=== PATIENT | male | born 1945 | race Caucasian/White ===

== ENCOUNTER 2016-11-09 00:19 | Day surgery (SDC) | payer MEDICARE ==
[2016-11-09] VITALS (12 sets, daily range): BP systolic 130–186; BP diastolic 56–84; PULSE 44; RESP 11–16; O2SAT 96–99
[~2016-11-09] VITALS: Ht 172.7 cm; Wt 101.1 kg
[~2016-11-09 00:19] MED LIST: ALLO300T2 PO; ASPI-973 PO; COLC0.6T52 PO; ETOD400T PO; KEN1O TOP; LOVA40TA PO; OLME1TAB5 PO; PIND5TAB PO
[2016-11-09] MEDS ORDERED: 0.9% Sodium Chloride 1,000 ML IV SCH (06:30)
[2016-11-09 07:25] LABS: BASOPHILS % (AUTO) 0.3 % (0-3); EOSINOPHILS % (AUTO) 5.2 % (0-5); MONOCYTES % (AUTO) 9.1 % (4-12); Mean Corpuscular Hemoglobin 31.9 pg (27.0-35.0); Mean Corpuscular Volume 91.2 fL (81-100); NEUTROPHILS % (AUTO) 58.2 % (40-74); Platelet Count 150 bil/L (150-400)
[2016-11-09] MEDS ORDERED: Heparin 1,000 Units/500 mL NS Premix IV ONE (08:41)
[2016-11-09] MEDS ORDERED: Heparin 10,000 Unit/1,000 mL NS Premix IV ONE (08:41)
[2016-11-09] MEDS ORDERED: 0.9% Sodium Chloride 50 ML ONE (09:46)
[2016-11-09] MEDS ORDERED: fentaNYL-PF 50 mCg/mL 2 mL Inj ONE (09:52)
[2016-11-09] MEDS ORDERED: Heparin 1,000 Unit/mL 10 mL Inj ONE (09:57)
--- NOTE | 2016-11-09 10:02 | NUR ---
Admitted today for an evaluation of his aortic valve. Symptoms of shortness of breath walking up a hill. which resolve after a brief rest, per patient. Treatment for Lower leg edema is managed by support hose and occasional diuretic - patient does not remember the name, and does not take it routinely. NSB today rates in the mid- 40's. Patient is here today with his , "Emy".
[2016-11-09] MEDS ORDERED: Atropine 1 mg/10 mL (Code) Syringe ONE (10:13)
--- NOTE | 2016-11-09 15:00 | NUR ---
Recovery completed for 3 hours post diagnostic heart cath today by Dr Morales. Right puncture site was a manual hold is soft with no hematoma , but patient states it feels like an ache-bruised feeling. Dr Guevara at bedside assessed Right puncture site - found nothing notable - Expressed to the patient to contact his office if the access site pain worsens, or he has more concerns. Patient and given Dr Morales's card with office number, and instructions to call the instructor bridge if further groin management is needed. NSB throught admit and stay in [facility] rates in the 40's. Home care instructions for home care post heart/sedation reviewed with both patient and patient's , "Emy". Plan is to have patient return next week for a possible stent placement - office to contact patient at home with appointment and pre-op instructions.
--- NOTE | 2016-11-10 16:06 | DI95 ---
[address] [address] INTERVENTIONAL CARDIAC CATHETERIZATION PATIENT: CEHYENNE SHARP : 1945 MR#: [id number] ADMIT: 11/09/2016 JOB ID: [id number] DATE: 11/09/2016 PROCEDURE: 1. Selective right and left coronary angiography. 2. Left heart catheterization. 3. Right heart catheterization. INDICATION: Aortic stenosis. Coronary artery disease. PROCEDURAL DETAILS: The reader is referred to the procedure log for complete details. Briefly, it was done via right femoral approach using a 6-Scottish system. A long sheath was placed in the proximal aorta. Left heart catheterization was performed with a 5-Scottish pigtail. The rest was done with a 6-Scottish system. ANGIOGRAPHIC FINDINGS: 1. Mild calcification of the AV groove and the aortic valve as well as the proximal coronary disease noted on fluoroscopy. 2. Left main: No critical stenosis. 3. LAD: In its mid portion just past the first major septal branch has an eccentric 80% lesion. This is followed by tubular stenosis of 40%-50%. Further down the mid LAD has another 50%-60% lesion. The second diagonal which is a small 1 mm vessel has an ostial 60% lesion. The ramus intermedius is a moderate caliber vessel free of any critical disease. 4. Circumflex is nondominant. It does not have any critical stenosis. 5. Right coronary artery is dominant. It is ectatic. Proximally, it has a 30% lesion accentuated by ectasia. This appears to be worse than it might actually be. In its mid portion, there appears to be another lesion ranging anywhere from 40%-70%. This needs to be better assessed with either IVUS or with FFR. FINDINGS: Pulmonary artery capillary wedge pressure was 27/21 with a mean of 17. PA pressure was 37/16 with a mean of 60. Cardiac output was 5.84 x 6 and 5.64 by thermodilution. There was a 38 mm mean gradient upon simultaneous measurement as well as upon pull-back. VENUS valve area was 1.4 as was the thermodilution valve area. RV pressure was 44/5, RA pressure was a mean of 11. Aortic pressure was 140/57 and LV pressure was 189/3. In summary this gentleman has two-vessel coronary artery disease. His aortic valve stenosis is moderate. I will discuss his treatment options with him which include bypass and percutaneous intervention on the RCA and LAD. The intervention will be done with IVUS/FFR guidance.
== END 2016-11-09 23:59 | disposition home or self-care (01) ==
LOC: SOUO 00:19
PROVIDERS: ATTEND Internal Medicine Cardiovascular Disease
DX: I35.0 Nonrheumatic aortic (valve) stenosis (principal); I25.10 Atherosclerotic heart disease of native coronary artery without angina pectoris; Z79.82 Long term (current) use of aspirin; F17.210 Nicotine dependence, cigarettes, uncomplicated
CPT/HCPCS: 36415; 80048; 85025; 93005; 93460; 99152; 99153; C1760; C1766; C1769; J1200; J1644; J2060; J2250; J3010; J7030; Q9967

== ENCOUNTER 2016-11-18 00:54 | Day surgery (SDC) | payer MEDICARE ==
[2016-11-18] VITALS (16 sets, daily range): BP systolic 132–165; BP diastolic 57–78; PULSE 46–69; RESP 16–28; O2SAT 98–100
[~2016-11-18] VITALS: Ht 170.2 cm; Wt 101.4 kg
[2016-11-18] MEDS ORDERED: 0.9% Sodium Chloride 1,000 ML IV ONE (06:43)
[2016-11-18 09:27] LABS: BASOPHILS % (AUTO) 0.3 % (0-3); MONOCYTES % (AUTO) 13.1 % (4-12); Mean Corpuscular Hemoglobin 31.6 pg (27.0-35.0); Mean Corpuscular Volume 91.8 fL (81-100); NEUTROPHILS % (AUTO) 55.3 % (40-74); Platelet Count 146 bil/L (150-400)
[2016-11-18 09:34] LABS: INR 1.02 ratio
[2016-11-18] MEDS ORDERED: Heparin 10,000 Unit/1,000 mL NS Premix IV ONE (09:35)
[2016-11-18] MEDS ORDERED: Heparin 1,000 Units/500 mL NS Premix IV ONE (09:35)
--- NOTE | 2016-11-18 10:14 | NUR ---
Dr Guevara called and informed that patient's Hgb and Hct are further decreased from 6/6 labs.No further orders received.
[2016-11-18] MEDS ORDERED: Nitroglycerin 50,000 mcg/250 mL D5W Premix IV ONE (10:21)
[2016-11-18] MEDS ORDERED: Heparin 1,000 Unit/mL 10 mL Inj ONE (10:22)
[2016-11-18] MEDS ORDERED: 0.9% Sodium Chloride 250 ML ONE (10:22)
[2016-11-18] MEDS ORDERED: 0.9% Sodium Chloride 1,000 ML ONE (10:22)
[2016-11-18] MEDS ORDERED: Adenosine 3 mg/mL 2 mL Inj ONE (10:22)
[2016-11-18] MEDS ORDERED: Verapamil 2.5 mg/mL 2 mL Inj ONE (10:23)
[2016-11-18] MEDS ORDERED: fentaNYL-PF 50 mCg/mL 2 mL Inj ONE ×2 (10:50→12:21)
[2016-11-18] MEDS ORDERED: Phenylephrine/NS-PF 100 mCg/mL 5 mL Syringe IVPUSH ONE (11:18)
[2016-11-18] MEDS ORDERED: Atropine 1 mg/10 mL (Code) Syringe ONE (11:18)
[2016-11-18] MEDS ORDERED: Heparin 5,000 Units/500 mL NS Premix IV ONE (11:47)
[2016-11-18] MEDS ORDERED: hydrALAZINE 20 mg/mL Inj ONE (12:18)
--- NOTE | 2016-11-18 13:47 | DI95 ---
[address] [address] INTERVENTIONAL CARDIAC CATHETERIZATION PATIENT: CHEYENNE SHARP : 1945 MR#: [id number] ADMIT: 11/18/2016 JOB ID: [id number] DATE: 11/18/2016 PROCEDURE: 1. Intravascular ultrasound of the left anterior descending. 2. Percutaneous intervention on the left anterior descending. 3. Rotablation of the left anterior descending. 4. Fractional flow reserve of the right coronary artery. INDICATION: Recurrent chest pain. PROCEDURAL DETAILS: The reader is referred to the procedure log for complete details. Briefly, a 7-Chinese system was used and right femoral artery approach. INTERVENTIONAL DETAILS: We initially placed a Runthrough wire in the LAD. Following that, an IVUS was performed. The IVUS showed that the LAD just past the first major septal branch had a 360-degree, circumferential ring of superficial calcification. It was about 1.9 mm in diameter, and the area was 3.9 mm squared, thereby confirming that it was significantly stenosed. The distal lesion past the second major diagonal was on an area of a bend and calcific, and the IVUS catheter would not cross this. The LAD proximal to the lesion measured about 3 mm in diameter. INTERVENTIONAL REPORT: We then took a 1.25 bur and did a rotablation in the proximal and the distal lesions. Following that, both were pre-dilated with a 2.0 balloon and the distal lesion was then stented with a 2.25 x 12 mm Xience drug-coated stent, and the proximal lesion was treated with a 3.0 x 23 mm Xience drug-coated stent. Final angiographic results were excellent. RIGHT CORONARY ARTERY INTERVENTION: We then did an FFR of the RCA. As mentioned in my previous report, RCA has significant ectasia in its proximal and middle segments, thereby making evaluation of lesions difficult. However, the FFR post adenosine was 0.91 and IFR was 0.94, thereby confirming that this lesion was not significant and hence, no intervention was done. The patient is advised to stay on dual antiplatelet therapy for six months post procedure. Of note, the patient had slight drop in his hemoglobin on labs today. The patient states he checks his stools regularly. He has had no GI or bleeding. Occasionally, he gets hemorrhoidal bleeding but he has not had any. Once in a while he gets upset stomach if he eats jalapenos or stuff like that. Otherwise, he has no history suggestive of any ongoing bleeding. Therefore, a decision was made to proceed ahead with his intervention today. He is going to keep an eye on his stools, and I would recommend checking his CBC in a few weeks as well. This can be coordinated through his primary care doctor's office.
--- NOTE | 2016-11-18 15:18 | NUR ---
Pt tx to room 2025 in stable condition.I called Dr Guevara prior to transport to inform him of patient's hematoma that had developed from last procedure on 11/09/16 and that can be palpated during this recovery but is unchanged.It is sore stephan. with palpation as expected.I offered pt pain medicine but he prefers to defer at this time. Physician has been aware of hematoma, states that arterial access today was below hematoma.Pt's at bedside, he continues to be very pleasant.He has ambulated to bathroom without any change in groin status. Sinus rhythm, no c/o chest pain.
[2016-11-18] MEDS ORDERED: 0.9% Sodium Chloride 250 ML IV PRN (15:59)
[2016-11-18] MEDS ORDERED: Ondansetron 2 mg/mL 2 mL Inj IVPUSH PRN (16:00)
[2016-11-18] MEDS ORDERED: Atropine 1 mg/10 mL (Code) Syringe IVPUSH PRN (16:00)
[2016-11-18] MEDS ORDERED: 0.9% Sodium Chloride 1,000 ML IV PRN (16:30)
[2016-11-19 03:36] VITALS: BP 159/80; PULSE 50; RESP 16; O2SAT 97
--- NOTE | 2016-11-19 04:43 | NUR ---
Groin Site Pt groin site stable, minimal sanguineous drainage to site, unchanged from beginning of shift, no bruising or tenderness except with deep palpation of hematoma present prior to arrival. Pt up SBA-IND in room, tolerates well. Denies pain. VSS. Tele SB/SR 50s-60s with PACs.
[2016-11-19 05:06] LABS: Mean Corpuscular Hemoglobin 31.3 pg (27.0-35.0)
[2016-11-19 08:14] VITALS: BP 173/75; PULSE 52; RESP 20; O2SAT 99
[2016-11-19] MEDS ORDERED: PT Own Med->Oral Medication PO SCH (08:30)
[2016-11-19 10:09] VITALS: PULSE 47
[2016-11-19 10:49] VITALS: BP_SYST 180; BP_SYST 184; BP_DIAS 75; BP_DIAS 81; PULSE 56
[2016-11-19] MEDS ORDERED: diphenhydrAMINE 25 mg Capsule PO ONE (11:00)
--- NOTE | 2016-11-19 11:42 | DIS ---
[address] [address] DISCHARGE SUMMARY PATIENT: CHEYENNE SHARP : 1945 MR#: [id number] ADMIT: 11/18/2016 JOB ID: [id number] DIS: 11/19/2016 DISCHARGE DIAGNOSIS: 1. Status post 2.25 x 12 mm Xience drug-coated stent placement to the distal LAD and 3 x 23 mm Xience drug-coated stent placement to the proximal LAD by Dr. Guevara. FFR of the RCA was not significant. 2. Non rheumatic moderate aortic stenosis based on recent right and left heart catheterization. 3. Essential hypertension. 4. Hyperlipidemia. 5. History of gout. 6. Possible sleep apnea. DISCHARGE MEDICATIONS: 1. Allopurinol 300 mg daily. 2. Aspirin 81 mg daily. 3. Plavix 75 mg daily. 4. Colchicine 0.6 mg daily p.r.n. 5. Lipitor 40 mg daily. 6. Amlodipine 5 mg daily which was started today. 7. Holding medication: Pindolol 5 mg daily. 8. Other blood pressure which needs to be continued olmesartan and hydrochlorothiazide combination 40/25 mg 1 tablet daily which he has been taking at home as well. BRIEF HOSPITAL COURSE: This 71-year-old pleasant male was brought yesterday for PCI of LAD and FFR of the RCA by Dr. Guevara. He had abnormal perfusion study and underwent left heart catheterization by Dr. Guevara on November 09, 2016, which revealed LAD has about 80% lesion past the first major septal rn neurosurgical followed by another 40%-50% lesion and another 50%-60% lesion in the mid portion. The second diagonal branch has about 60% ostial disease. Circumflex did not have any critical disease. RCA has about 30% proximal ectasia in the mid portion, some are 40%-70% disease. With right heart catheterization, aortic valve area was about 1.4 cm2 and the mean gradient 38 mmHg. The patient has moderate aortic stenosis. Hence, the patient was scheduled for PCI of LAD and FFR of the RCA. Yesterday, he underwent intervention to the LAD with two drug-coated stents. The patient also had rotablation prior to the stent placement to the LAD. FFR of the right coronary artery was not significant. It was 0.91 and 0.94. In the hospital, his course was uncomplicated except that his heart rate was slow. During sleep, it was about 44. At awake he is like 50-55. It is a sinus bradycardia. At present, he is asymptomatic. The patient also complained of some itching in the groin. I examined his groin and the entire skin area. I do not see any significant rash. I do not see any tenderness. Right groin examination did not reveal any significant hematoma. Chest sounds clear. The patient has diffuse ejection systolic murmur of aortic stenosis. YOUTH COORDINATOR: He is alert, oriented to time, place and person. His hemoglobin 12.6, platelets 153. Sodium 138, potassium 4.1, BUN 24, creatinine 1.02. I suspect sleep apnea. Discussed with the patient and his they need to see PCP and get workup as an outpatient. He was taking pindolol 5 mg which can cause bradycardia. As he has persistent sinus bradycardia, rate in the 50s, I am holding his pindolol at present. Regarding his blood pressure which was 180/71, I will start him on amlodipine 5 mg daily. Benefits and side effects discussed. The patient will need dual anti-platelet therapy for at least one year. Discussed with the patient importance of aspirin and Plavix in view of recent drug-coated stent placement. At present, I do not see obvious allergic reaction to Plavix. No tongue swelling. No shortness of breath. No diffuse skin rash. I will give him 25 mg of Benadryl and ranitidine 150 mg for his itching around scrotal area. However, if patient developed diffuse rash or significant allergic reaction, I advised him to call us or come to the ED. The patient and his understood. Groin care explained. The patient to monitor blood pressure at home. He will benefit with cardiac rehab. The patient to see Dr. Guevara in 1-2 weeks in the office. DISPOSITION: The patient is being discharged home once his blood pressure gets better controlled. Activity as tolerated. Diet healthy heart diet. Followup as discussed above. I spent more than 35 minutes looking into his chart, previous procedure, telemetry rhythm strips, examination, dictation and counseling.
[2016-11-19] MEDS ORDERED: AMLO5TAB2 PO (11:53)
[2016-11-19] MEDS ORDERED: CLOP75TA3 PO (11:57)
[2016-11-19] MEDS ORDERED: LIP40 PO (11:59)
[2016-11-19 12:14] VITALS: BP 156/74; PULSE 50; RESP 22; O2SAT 98
--- NOTE | 2016-11-19 13:02 | NUR ---
Discharge of patient Reviewed discharge instructions with patient and patient's . Both verbalized understanding. Patient walk out of hospital with prescriptions and instructions. IV and telemetry previously discontinued. Patient left hospital with to home self care.
== END 2016-11-19 12:57 | disposition home or self-care (01) ==
LOC: SOUO 00:54 → PCC 15:42 → SOUO 11-19 12:57
PROVIDERS: ATTEND Internal Medicine Cardiovascular Disease
DX: I25.10 Atherosclerotic heart disease of native coronary artery without angina pectoris (principal); I25.84 Coronary atherosclerosis due to calcified coronary lesion; Z79.82 Long term (current) use of aspirin; I35.0 Nonrheumatic aortic (valve) stenosis; I10 Essential (primary) hypertension; E78.5 Hyperlipidemia, unspecified; M10.9 Gout, unspecified; R00.1 Bradycardia, unspecified
CPT/HCPCS: 36415; 80048; 85025; 85027; 85610; 92978; 93005; 93571; 99152; 99153; C1724; C1725; C1753; C1760; C1769; C1874; C1887; C1894; C9602; J0153; J0360; J1644; J2060; J2250; J3010; J7030; J7050; Q9967